=== PATIENT | male | born 2000 | race Two or more races ===

== ENCOUNTER 2024-04-20 19:41 | Emergency (ER) | payer OTHER, BC, SELFPAY ==
[2024-04-20 19:42] VITALS: BMI 38.7
[2024-04-20 20:03] VITALS: BP 143/93; PULSE 83; RESP 18; TEMP 36.9; O2SAT 99
--- NOTE | 2024-04-20 20:21 | XR_ITS ---
Examination: Duplex scan of the upper extremity, unilateral left Date and time of exam: The 2023 10:15 PM Indications: Left hand swelling and pain today Technique: Duplex scan of the extremity veins using B-mode/grayscale imaging and Doppler spectral analysis and color flow Attention is directed to internal echogenicity, compression and augmentation involving these veins, color flow assessment, spectral analysis Findings: Major deep venous structures in the extremity demonstrate normal course and caliber. There is no evidence of deep vein thrombosis. Normal color flow and spectral analysis Impression: Negative for DVT..
--- NOTE | 2024-04-21 00:08 | PD.EDUPEX ---
Upper Extremity Injury RME/HPI General Chief Complaint: General Adult/Misc Complain Stated Complaint: LEFT HAND SWELLING AND ITCHING Time Seen by Provider: 04/20/24 20:03 Arrival date/time: 04/20/24 19:41 RME / HPI RME / HPI narrative: This section includes all my notes and documentations, including HPI, PE, and ED course. Jose Alfredo Salcedo MD HPI: 24-year-old male here with a couple day history of left hand swelling. No redness or warmth or pain. No injury. No chest pain or shortness of breath. No other complaints. ROS: All negative except as documented in HPI. Physical Exam: General: Alert and oriented. No acute distress when remaining still. Eyes: Conjunctivae and lids clear. ENT: No nasal congestion. Neck: Supple. Lungs: No respiratory distress. Skin: Warm and dry. Neuro: Alert and oriented X 3. Left Hand: Moderate edema noted. No erythema/calor/tenderness. My review of the left upper extremity US report is no DVT. At this point, diagnoses include left hand edema probably due to lymphedema. Recommended a trial of outpatient treatment. Based on my best medical judgment, made decision no further evaluation or treatment indicated at this time. Patient understands and agrees to the discharge instructions customized and printed, see below. Discharge Instructions from Dr. Salcedo printed for you: 1. Fortunately, there is no blood clots in your veins. Which can travel into the lungs and can be fatal. 2. Your swelling is from leaking of your blood vessels, see attached handout. 3. When sitting or resting or sleeping, elevate your left hand above your heart level. Placing her hand on your head is a good method. 4. See a private doctor on 04/22/2024. Ask for a referral to see prop sawyer (doctor who specializes in joints and muscles) to make sure there is no serious underlying condition. 5. Seek immediate medical care with worsening or with any concerns. Jose Alfredo Salcedo MD Related Data Home Medications ?Medication ?Instructions ?Recorded ?Confirmed ALBUTEROL NEB ##0 05/07/09 albuterol sulfate 90 mcg/actuation inhalation PRN DIFFICULTY BREAT ##0 07/07/13 aerosol inhaler (ProAir HFA) beclomethasone dipropionate 80 2 puff inhalation NIGHTLY #0 puffs 07/07/13 mcg/actuation aerosol inhaler (Qvar) montelukast 10 mg tablet 10 mg PO HS #0 tabs 07/07/13 (Singulair) Allergies Allergy/AdvReac Type Severity Reaction Status Date / Time No Known Allergies Allergy Verified 04/20/24 19:45 Course Quality Measures none Orders Category Date Time Status US venous doppler UE LT Stat Exams 04/20/24 20:21 Completed Vital Signs Vital signs: Vital Signs Temperature 98.5 F 04/20/24 20:03 Pulse Rate 83 04/20/24 20:03 Respiratory Rate 18 04/20/24 20:03 Blood Pressure 143/93 H 04/20/24 20:03 Pulse Oximetry (%) 99 04/20/24 20:03 Oxygen Delivery Method Room Air 04/20/24 20:03 Extremity Injury Patient data External records reviewed:: [facility] previous records Clinical information provided by:: patient Social determinants that could affect healthcare access:: none Patient has the following chronic illnesses:: Asthma How is presenting disease/condition affected by chronic disease/condition?: uneffected by Evaluation data The following diagnostics were reviewed and interpreted by me:: radiology exam(s) Lab and/or radiology exams considered but not ordered:: None Interpretation Summary: No DVT in the left upper extremity Medications / Prescriptions Medications or Prescriptions considered but not ordered:: None Medication administrations:: None Consultations Consultation(s) initiated? (list below): No Diagnosis Upper Extremity Injury Differential Diagnosis: other (DVT, lymphedema, contusion) Most likely diagnosis given after review of the tests above:: Lymphedema Admission Indicated Admission indicated?: not indicated Admission Request Was there a request for admission?: No Disposition Plan Disposition Plan: Discharge Discharge Attestation Discharge Attestation: The patient and all family members were given an opportunity to ask questions and understood the discharge instructions. Discharge instructions specifically effects, indications for sooner follow up or return to the emergency department, and the expected course of current diagnosis. Patient condition: Stable Discharge Plan Plan Patient Disposition: HOME (Self Care) Prescriptions/Referrals Prescriptions/Med Rec: No Action ALBUTEROL NEB Qty: 0 beclomethasone dipropionate [Qvar] 100 PUFF/INH aerosol 2 puff Inhalation NIGHTLY Qty: 0 montelukast [Singulair] 10 MG tablet 10 mg PO HS Qty: 0 albuterol sulfate [ProAir HFA] 8.5 GM HFA aerosol inhaler Inhalation PRN DIFFICULTY BREAT Qty: 0 Referrals: Juliocesar Day MD [Primary Care Provider] - In 1 week Problem List Clinical Impression: Swelling of left hand Patient/Caregiver Discharge Instructions Discharge Activity: activity as tolerated Education Materials: ED Lymphedema Additional Instructions: Discharge Instructions from Dr. Salcedo printed for you: 1. Fortunately, there is no blood clots in your veins. Which can travel into the lungs and can be fatal. 2. Your swelling is from leaking of your blood vessels, see attached handout. 3. When sitting or resting or sleeping, elevate your left hand above your heart level. Placing her hand on your head is a good method. 4. See a private doctor on 04/22/2024. Ask for a referral to see prop sawyer (doctor who specializes in joints and muscles) to make sure there is no serious underlying condition. 5. Seek immediate medical care with worsening or with any concerns. Print Language: [place] Stand Alone Forms: Stefanie Award Info., Patient Portal Info Letter
[2024-04-21 00:10] VITALS: RESP 18
== END 2024-04-21 00:11 | disposition home or self-care (01) ==
PROVIDERS: Emergency Provider Emergency Medicine; PCP Family Medicine
DX: R22.32 Localized swelling, mass and lump, left upper limb (principal)
CPT/HCPCS: 93971; 99284

== ENCOUNTER → 2024-04-21 | Outpatient (CLI) | payer OTHER, BC, SELFPAY ==
[2024-04-21 11:30] LABS: Basophils % (Auto) 1 % (0-2.5); Eosinophils # (Auto) 0.4 Thou/mm3 (0.0-0.5); Eosinophils % (Auto) 5 % (0-10); Hematocrit 44.7 % (41.0-53.0); Hemoglobin 15.2 g/dL (13.5-16.0); Immature Granulocytes % (Auto) 1 % (0-0); Immature Granulocytes Auto 0.04 Thou/mm3 (0.00-0.00); Lymphocytes # (Auto) 2.8 Thou/mm3 (1.0-4.8); Lymphocytes % (Auto) 36 % (10-50); Mean Corpuscular Hemoglobin 29.5 pg (25.0-35.0); Mean Corpuscular Volume 87 fL (80-100); Monocytes # (Auto) 0.7 Thou/mm3 (0.0-0.8); Monocytes % (Auto) 8 % (0-12); Neutrophils % (Auto) 50 % (37-80); Nucleated Red Blood Cell % 0 /100 WBC (0); Platelet Count 250 Thou/mm3 (140-440); RDW Standard Deviation 39.7 fL (35.1-43.9); Red Blood Count 5.15 Miln/mm3 (4.50-5.90)
[2024-04-21 12:05] LABS: Alanine Aminotransferase 305 U/L (10-49); Albumin, Serum 4.7 gm/dL (3.5-5.0); Albumin/Globulin Ratio 1.6 (1.2-2.2); Alkaline Phosphatase 84 U/L (46-116); Anion Gap 4 (7-16); Aspartate Amino Transferase 114 U/L (0-34); BUN/Creatinine Ratio 13 Ratio (12-20); Bilirubin,Total 0.6 mg/dL (0.3-1.2); Blood Urea Nitrogen 13 mg/dL (9-23); Calcium 9.9 mg/dL (8.3-10.6); Calcium (Corrected) 9.9 mg/dL (8.5-10.1); Carbon Dioxide 27.6 mMol/L (20.0-31.0); Chloride 105 mMol/L (98-107); Free T4 (Free Thyroxine) 1.08 ng/dL (0.89-1.76); Glucose 115 mg/dL (74-106); Osmolality,Calculated 274 (275-295); Potassium 4.2 mMol/L (3.4-5.1); Sodium 137 mMol/L (136-145); Thyroid Stimulating Hormone 2.94 uIU/mL (0.55-4.78); Total Protein 7.7 gm/dL (5.7-8.2); eGFR > 60 See Note
== END | disposition home or self-care (01) ==
LOC: COPL 10:30
PROVIDERS: PCP Family Medicine; Referring Provider Family Medicine; Visit Provider Family Medicine
DX: D50.0 Iron deficiency anemia secondary to blood loss (chronic) (principal); E03.2 Hypothyroidism due to medicaments and other exogenous substances; Z13.1 Encounter for screening for diabetes mellitus
CPT/HCPCS: 36415; 80053; 84439; 84443; 85025

== ENCOUNTER → 2024-04-25 | Outpatient (CLI) | payer OTHER, BC, SELFPAY ==
[2024-04-25 11:09] LABS: Hepatitis A Antibody IgM Non Reactive (Non React); Hepatitis B Core Antibody IgM Non Reactive (Non React); Hepatitis B Surface Antigen Non Reactive (Non React); Hepatitis C Antibody Non Reactive (Non React)
== END | disposition home or self-care (01) ==
PROVIDERS: PCP Family Medicine; Referring Provider Family Medicine; Visit Provider Family Medicine
DX: R74.8 Abnormal levels of other serum enzymes (principal)
CPT/HCPCS: 36415; 80074